=== PATIENT | female | born 1965 ===

== ENCOUNTER 2020-06-18 21:05 | Emergency (ER) | payer SELFPAY ==
[~2020-06-18] VITALS: Ht 175.3 cm; Wt 95.0 kg
[2020-06-18 21:14] VITALS: BP 151/113
--- NOTE | 2020-06-18 22:35 | NUR ---
[facility] states pt has been cited and is no longer in custody.
--- NOTE | 2020-06-18 23:00 | NUR ---
PT WAS RELEASE FROM CUSTODY AND IS ASKING TO LEAVE. DOESNT WANT TO WAIT TO SEE A PROVIDER. WAS INSTRUCTED TO RETURN TO ER FOR WORSENING SYMPTOMS.
== END 2020-06-18 23:05 | disposition left against medical advice (07) ==
LOC: ER 21:06
DX: Z20.89 Contact with and (suspected) exposure to other communicable diseases (principal); Z53.21 Procedure and treatment not carried out due to patient leaving prior to being seen by health care provider
CPT/HCPCS: 93005